=== PATIENT | female | born 1960 | race Caucasian/White ===

== ENCOUNTER 2017-05-25 14:58 | Day surgery (SDC) | payer MEDICAID ==
[2017-05-25] MEDS ORDERED: FENTANYL CITRATE INJ/PF 100 MCG/2 ML AMPUL ONE (15:05)
[2017-05-25] MEDS ORDERED: FLUMAZENIL INJ 0.5 MG/5 ML VIAL ONE (15:05)
[2017-05-25] MEDS ORDERED: NALOXONE HCL INJ/PF 0.4 MG/1 ML SDV ONE (15:05)
[2017-05-25] MEDS ORDERED: GLUCAGON,HUMAN RECOMB 1 MG INJ ONE (15:06)
[2017-05-25] MEDS ORDERED: EPINEPHRINE INJ 1 MG/10 ML DISP.SYRIN ONE (15:06)
[2017-05-25] MEDS: MIDAZOLAM 2 MG/2 ML INJ ONE ×2 (16:27→16:32)
--- NOTE | 2017-05-25 17:01 | Operative Report ---
Operative Report DATE OF SURGERY: 05/25/17 Operative Report: Pre-op diagnosis: History of duodenal ulcer and stricture Post-op diagnosis: 1. Pyloric channel ulcer 2. Duodenal stricture Surgery: Esophagogastroduodenoscopy with dilation Medications: Versed 3mg Fentanyl 100mcg IV push Tissue removed: None Procedure: After informed consent obtained from patient, the throat was sprayed with Hurricane and conscious sedation was achieved. The upper endoscope was inserted into the esophagus under direct vision and advanced into the stomach. The duodenum was entered and examined to the second part. Endoscope was then slowly pulled out of the patient as the mucosa was examined into details. Patient tolerated procedure well. Findings Esophagus: Normal Z-line at: 32 cm Antrum: Normal. There was a 3 mm ulcer noted at a wide open pyloric channel Body: Normal Fundus: Normal Duodenum first part: No ulceration was identified but she had stenoses between the first and second part of duodenum. This was then dilated with a 12 mm balloon catheter Duodenum second part: Normal Plan: Continue pantoprazole and Zantac twice a day for 2 more months before stopping Zantac. Her duodenal ulcer has healed with this regimen OPERATION: .
[2017-05-25 17:42] VITALS: BP 99/42
--- NOTE | 2017-05-25 17:48 | PDOC DISCHARGE SUMMARY ---
Discharge Summary (SDC) - Discharge Final Diagnosis: Pyloric channel ulcer and duodenal stricture Date of Surgery: 05/25/17 Condition: Stable Forms: Sedation D/C Instructions, Discharge POC-Surgical Service Treatment or Instructions: None Referrals: OSWALDO ARIAS MD [ACTIVE STAFF] - Discharge Diet: As Tolerated Respiratory Treatments at Home: Deep Breathing/Coughing Discharge Activity: Activity As Tolerated, Balance Activity w/Rest, No Driving Home Care Assistance: None Needed Report the Following to Your Physician Immediately: Shortness of Breath, Nausea , Vomiting, Increase in Pain, Fever over 101 Degrees, Unusual Bleeding, IV Site Infection Signs
== END 2017-05-25 17:48 | disposition home or self-care (01) ==
LOC: END 14:58
PROVIDERS: ATTEND Internal Medicine Gastroenterology
PROC: 0D798ZZ Dilation of Duodenum, Via Natural or Artificial Opening Endoscopic (ICD-10-PCS; principal; 2017-05-25 15:30)
DX: K31.5 Obstruction of duodenum (principal); K25.9 Gastric ulcer, unspecified as acute or chronic, without hemorrhage or perforation; J44.9 Chronic obstructive pulmonary disease, unspecified; E78.00 Pure hypercholesterolemia, unspecified; I50.9 Heart failure, unspecified; K21.9 Gastro-esophageal reflux disease without esophagitis; Z86.73 Personal history of transient ischemic attack (TIA), and cerebral infarction without residual deficits; Z79.82 Long term (current) use of aspirin; Z79.899 Other long term (current) drug therapy; Z79.51 Long term (current) use of inhaled steroids
CPT/HCPCS: 43245; C1726; J2250; J0171; J3010; 43249; J1610; J2310; J3490

== ENCOUNTER 2018-07-22 19:09 | Emergency (ER) | payer MEDICAID ==
[2018-07-22] MEDS ORDERED: ACETAMINOPHEN 325 MG TABLET PO ONE (19:17)
--- NOTE | 2018-07-22 20:14 | RADIOLOGY REPORT (SQ) ---
EXAM DESCRIPTION: WRIST LEFT 3 VIEWS COMPLETED DATE/TIME: 07/22/2018 8:00 pm REASON FOR STUDY: injury COMPARISON: None. NUMBER OF VIEWS: Three views. TECHNIQUE: AP, lateral, and oblique radiographic images acquired of the left wrist. LIMITATIONS: None. FINDINGS: MINERALIZATION: Normal BONES: Acute fracture, distal left radius metaphysis with moderate dorsal displacement and minimal do rsal angulation. Acute distal left ulna metaphysis and ulna styloid fractures with mild dorsal angulation Carpal bones, proximal metacarpals are intact SOFT TISSUES: Diffuse left wrist soft tissue swelling. No foreign body. OTHER: No other significant finding. IMPRESSION: Acute fractures, distal left radius and ulna metaphysis with dorsal displacement and ang ulation TECHNICAL DOCUMENTATION: JOB ID: [id number] [employer]- All Rights Reserved Reading location - IP/workstation name: [email or web address]
[2018-07-22] MEDS ORDERED: FENTANYL CITRATE INJ/PF 100 MCG/2 ML AMPUL IV ONE (20:36)
[2018-07-22] MEDS ORDERED: ONDANSETRON HCL INJ/PF 4 MG/2 ML SDV IV ONE (20:36)
--- NOTE | 2018-07-22 20:38 | ER Document Report ---
ED Fall - General Chief Complaint: Fall Stated Complaint: FALL Time Seen by Provider: 07/22/18 20:17 Notes: Patient is a 57-year-old female that comes to the emergency department for chief complaint of fall and left wrist injury. She states she lost her balance and tried to catch herself with her wrist and put it behind her, she landed on the wrist. She denies head injury, back pain, shoulder pain, hip pain, or any other complaints. There is swelling and deformity to the wrist. She is on Plavix. and friend at bedside. TRAVEL OUTSIDE OF THE [place] IN LAST 30 DAYS: No - Related data Allergies/Adverse Reactions: No Known Allergies Allergy (Verified 05/25/17 14:59) Past Medical History - General Information source: Patient - Social History Smoking Status: Never Smoker Frequency of alcohol use: None Drug Abuse: None Lives with: Family Family History: None - Past Medical History Cardiac Medical History: Reports: Hx Hypertension Denies: Hx Coronary Artery Disease, Hx Heart Attack Pulmonary Medical History: Reports: Hx Asthma, Hx COPD, Hx Pneumonia - HX Denies: Hx Bronchitis Neurological Medical History: Reports: Hx Cerebrovascular Accident - 2014 WEAKER ON RIGHT. Denies: Hx Seizures Musculoskeletal Medical History: Denies Hx Arthritis Past Surgical History: Reports: Hx Section. Denies: Hx Hysterectomy - Immunizations Hx Diphtheria, Pertussis, Tetanus Vaccination: No Review of Systems - Review of Systems Constitutional: No symptoms reported EENT: No symptoms reported Cardiovascular: No symptoms reported Respiratory: No symptoms reported Gastrointestinal: No symptoms reported Genitourinary: No symptoms reported Female Genitourinary: No symptoms reported Musculoskeletal: See HPI Skin: No symptoms reported Hematologic/Lymphatic: No symptoms reported Neurological/Psychological: No symptoms reported Physical Exam - Vital signs Vitals: Temp Pulse Resp BP Pulse Ox 98.1 F 86 20 112/74 98 07/22/18 19:16 07/22/18 19:16 07/22/18 19:16 07/22/18 19:16 07/22/18 19:16 - Notes Notes: GENERAL: Alert, interacts well. No acute distress. HEAD: Normocephalic, atraumatic. EYES: Pupils equal, round, and reactive to light. Extraocular movements intact. ENT: Oral mucosa moist, tongue midline. Oropharynx unremarkable. Airway patent. Nares patent, no nasal septal hematoma, TM's intact. NECK: Full range of motion. Supple. Trachea midline. LUNGS: Clear to auscultation bilaterally, no wheezes, rales, or rhonchi. No respiratory distress. HEART: Regular rate and rhythm. No murmur ABDOMEN: Soft, non-tender. Non-distended. Bowel sounds present in all 4 quadrants. GENITOURINARY: Deferred EXTREMITIES: Moves all 4 extremities spontaneously. No edema, normal radial and dorsalis pedis pulses bilaterally. No cyanosis. BACK: no cervical, thoracic, lumbar midline tenderness. No saddle anesthesia, normal distal neurovascular exam. NEUROLOGICAL: Patient is alert and oriented, slightly sluggish in responses and has to have everything repeated, this is baseline per family. Otherwise unremarkable. [cranial nerves II through XII grossly intact]. PSYCH: Normal affect, normal mood. SKIN: Warm, dry, normal turgor. No rashes or lesions noted. Course - Re-evaluation Re-evalutation: Patient with displaced distal ulna and radial fractures, stress fracture, sensation and capillary refill intact, radial pulses normal. Elbow, shoulder, back, neck, head exam does not indicate injury, patient denies injury to these locations. No other concerning findings or reported symptoms. Conscious sedation and reduction was performed on the left wrist, this was performed with good results and almost returned to anatomical position. Splint was placed, discussed medications for pain, discussed follow-up, discussed return precautions in detail with patient and family. They state understanding and agreement. - Vital Signs Vital signs: Temp Pulse Resp BP Pulse Ox 98.1 F 71 18 102/55 L 97 07/22/18 19:16 07/22/18 22:16 07/22/18 23:50 07/22/18 23:50 07/22/18 23:50 Discharge - Discharge Clinical Impression: Distal radius fracture, left Qualifiers: Encounter type: initial encounter Fracture type: closed Fracture morphology: Anderson's Qualified Code(s): S52.542A - Anderson's fracture of left radius, initial encounter for closed fracture Distal end of ulna fracture, closed Qualifiers: Encounter type: initial encounter Fracture morphology: unspecified fracture morphology Laterality: left Qualified Code(s): S52.602A - Unspecified fracture of lower end of left ulna, initial encounter for closed fracture Condition: Stable Disposition: HOME, SELF-CARE Additional Instructions: You have displaced fractures of the end of the bones of your forearm, this was reduced and splinted, please call Wednesday for close follow-up with the orthopedics referral for additional evaluation and management. Take the pain medication as prescribed if needed, if not simply take Tylenol for pain, take the stool softener if you take the morphine to avoid constipation. Return for any concerning or worsening symptoms including severe pain or swelling. Prescriptions: Morphine Sulfate [Morphine Ir 15 Mg Tablet] 15 mg PO Q4HP PRN #12 tablet PRN Reason: Docusate Sodium [Colace 100 mg Capsule] 100 mg PO ASDIR PRN #30 capsule PRN Reason: Referrals: YO BECKMAN DO [ACTIVE STAFF] - 07/25/18
[2018-07-22] MEDS ORDERED: PROPOFOL INJ 200 MG/20 ML VIAL IV ONE (21:19)
--- NOTE | 2018-07-22 22:32 | RADIOLOGY REPORT (SQ) ---
EXAM DESCRIPTION: XR WRIST 1-2 VIEWS COMPLETED DATE/TME: 07/22/2018 22:04 CLINICAL HISTORY: 57 years ,Female post reduction COMPARISON: 07/22/2018. TECHNIQUE: LEFT wrist, two view FINDINGS: There has been interval reduction of the fractures of the distal radius and ulna. Alignment is near anatomic. There is minimal residual posterior displacement of the distal radial fracture. IMPRESSION: Interval reduction of distal radial and ulnar fractures with near-anatomic alignment
[2018-07-22] MEDS ORDERED: NORMAL SALINE 1000 ML 1,000 ML IV ONE (22:37)
[2018-07-22] MEDS ORDERED: HYDROCODONE/ACETAMINOPHEN 5-325 MG (6 TAB/ER DISP) PO PRN (23:31)
[2018-07-23 00:07] VITALS: BP 102/55
--- NOTE | 2018-07-23 02:34 | ER Document Report ---
Procedures - Conscious Sedation Conscious sedation Time started: 22:00 Time completed: 22:16 Consent obtained: Yes Indication: Left distal radius and ulna reduction Prior complications: Procedural sedation Pt with a mild systemic disease.: P2. - ASA Classification. Airway Evaluation: Normal anatomy Mallampati Classification: Class 1 Used during procedure: Suction available, IV access obtained, Pulse ox on pt., environmental monitoring technician on pt. Medications administered: Diprivan Reversal agents: None I personally performed/intraservice time: Sedation, Procedure, 30 min or less Complications: No - Immobilization Left Arm Pre-Proc Neuro Vasc Exam: Normal Immobilizer type: Sugar tong Performed by: Provider assisted Post-Proc Neuro Vasc Exam: Normal Alignment checked and good: Yes - Joint Reduction/Fracture Care Left Wrist Time completed: 22:10 Consent obtained: Yes Conscious sedation: Yes Pre-procedure NV exam: Yes Fracture: Closed Manipulation comment: Hyperextension, direct traction Post-procedure NV exam: Yes Post-reduction x-ray: Joint reduced Reduction attempts: 1 Complications: No
== END 2018-07-22 23:49 | disposition home or self-care (01) ==
LOC: ER 19:09
DX: S52.542A Smith's fracture of left radius, initial encounter for closed fracture (principal); S52.602A Unspecified fracture of lower end of left ulna, initial encounter for closed fracture; W19.XXXA Unspecified fall, initial encounter; Z79.02 Long term (current) use of antithrombotics/antiplatelets; I10 Essential (primary) hypertension; J44.9 Chronic obstructive pulmonary disease, unspecified
CPT/HCPCS: 99284; 96361; 99152; 96374; 73100; 73110; J3490; J3010; J2405; J7030; J2704